=== PATIENT | male | born 1955 | race Caucasian/White ===

== ENCOUNTER 2021-09-23 16:19 | Observation (INO) | payer OTHER ==
[~2021-09-23] VITALS: Ht 177.8 cm; Wt 74.8 kg
[2021-09-23 17:20] LABS: BUN/CREATININE RATIO 12 (0-10)
[2021-09-23 20:40] LABS: HEMOGLOBIN 13.9 gm/dl (14.0-17.5); RED BLOOD COUNT 4.24 M/UL (4.20-5.50); WHITE BLOOD COUNT 4.1 K/UL (4.5-11.0)
[2021-09-24 06:23] LABS: RED BLOOD COUNT 4.24 M/UL (4.20-5.50)
[2021-09-24 06:35] LABS: WHITE BLOOD COUNT 2.9 K/UL (4.5-11.0)
[2021-09-24 06:37] LABS: BUN/CREATININE RATIO 15 (0-10)
[2021-09-24] MEDS ORDERED: AMLODIPINE BES2.5 MG PO (10:36)
[2021-09-24] MEDS ORDERED: ALPRAZOLAM1 MG PO (10:36)
[2021-09-24] MEDS ORDERED: AMARYL4 MG PO (10:37)
[2021-09-24] MEDS ORDERED: DRISDOL1250 MCG PO (10:37)
[2021-09-24] MEDS ORDERED: ASPIRIN EC81 MG PO (10:37)
[2021-09-24] MEDS ORDERED: XIFAXAN550 MG PO (10:38)
[2021-09-24] MEDS ORDERED: LACTULOSE10 GM/15 M PO (10:38)
[2021-09-24] MEDS ORDERED: METOPROLOL SUCC25 MG PO (10:38)
[2021-09-24] MEDS ORDERED: OMEPRAZOLE20 MG PO (10:38)
[2021-09-24] MEDS ORDERED: FLOMAX0.4 MG PO (10:39)
[2021-09-24] MEDS ORDERED: JANUVIA100 MG PO (10:39)
[2021-09-24] MEDS ORDERED: SPIRIVA RESPIMAT4 GM INH (10:40)
== END 2021-09-24 19:02 | disposition home or self-care (01) ==
LOC: ER1 16:19 → CDU 22:31 → MED SURG 4 09-24 15:43
PROVIDERS: Internal Medicine; Nurse Practitioner; ADMIT Internal Medicine Infectious Disease
DX: K72.90 Hepatic failure, unspecified without coma (principal); Z20.822 Contact with and (suspected) exposure to COVID-19; K74.60 Unspecified cirrhosis of liver; E11.9 Type 2 diabetes mellitus without complications; J44.9 Chronic obstructive pulmonary disease, unspecified; I25.10 Atherosclerotic heart disease of native coronary artery without angina pectoris; D61.818 Other pancytopenia; N40.0 Benign prostatic hyperplasia without lower urinary tract symptoms; Z86.16 Personal history of COVID-19; R79.1 Abnormal coagulation profile; F17.210 Nicotine dependence, cigarettes, uncomplicated; I25.2 Old myocardial infarction; Z79.82 Long term (current) use of aspirin; Z79.84 Long term (current) use of oral hypoglycemic drugs; Z79.899 Other long term (current) drug therapy; Z88.5 Allergy status to narcotic agent; Z88.8 Allergy status to other drugs, medicaments and biological substances; Z91.040 Latex allergy status; Z95.5 Presence of coronary angioplasty implant and graft
CPT/HCPCS: 0240U; 36600; 70450; 71045; 80048; 80076; 80307; 81001; 82140; 82550; 82553; 82803; 82962; 83605; 83874; 84484; 85025; 85379; 85652; 86140; 87040; 93005; 94640; 94664; 96374; 96376; 99285; G0378; J2920; J2930; J7030; Q9967